=== PATIENT | male | born 1955 | race Caucasian/White ===

== ENCOUNTER 2017-04-09 06:25 | Inpatient (IN) | payer OTHER ==
[~2017-04-09 06:25] MED LIST: CEFAZOLIN 2 GM/50 ML (PMX) 50 ML IVPB; SOD CHLORIDE 0.9% 1,000 ML IV
[2017-04-09] MEDS ORDERED: CEFAZOLIN 1 GM INJ (07:00)
[2017-04-09] MEDS ORDERED: ROCURONIUM 50 MG INJ ×2 (07:00→08:01)
[2017-04-09] MEDS ORDERED: CEFAZOLIN 2 GM/50 ML (PMX) 50 ML IVPB ×2 (07:30→10:00)
[2017-04-09] MEDS ORDERED: DIPHENHYDRAMINE 50 MG INJ IV (08:00)
[2017-04-09] MEDS ORDERED: ALBUTEROL 0.083% (NEB) 2.5 MG/3 ML AMP HHN (08:00)
[2017-04-09] MEDS ORDERED: HYDROmorphONE (0.2 MG/ML) 10ML SYG IV ×2 (08:00)
[2017-04-09] MEDS ORDERED: LABETALOL HCL 20MG INJ IV (08:00)
[2017-04-09] MEDS ORDERED: OXYCODONE/ACETAMINOPHEN (5/325) TAB PO ×2 (08:00)
[2017-04-09] MEDS ORDERED: MEPERIDINE 25 MG INJ IV (08:00)
[2017-04-09] MEDS ORDERED: FENTAnyl 50 MCG/ML VIAL IV ×2 (08:00)
[2017-04-09] MEDS ORDERED: EPHEDrine SULFATE 50 MG/5 ML SYG IV (08:00)
[2017-04-09] MEDS ORDERED: METOCLOPRAMIDE 10 MG INJ IV (08:00)
[2017-04-09] MEDS ORDERED: hydrALAzine 20 MG INJ IV (08:00)
[2017-04-09] MEDS ORDERED: PROPOFOL 20 ML (08:01)
[2017-04-09] MEDS ORDERED: LIDOCAINE 2% (SDV) 5 ML INJ (08:02)
[2017-04-09] MEDS: BUPIVACAINE 0.25% (MPF) 30 ML INJ (08:25)
[2017-04-09] MEDS ORDERED: POLYMYXIN/BACITRACIN 1L IRRIG (08:33)
[2017-04-09] MEDS ORDERED: DEXAMETHASONE 4 MG/ML 1 ML INJ (09:15)
[2017-04-09] MEDS ORDERED: ONDANSETRON 4 MG INJ (09:16)
[2017-04-09] MEDS ORDERED: SUGAMMADEX SODIUM 200 MG/2 ML VIAL IV (09:26)
[2017-04-09 10:27] LABS: ADD MAN DIFF? NO
[2017-04-09 10:38] LABS: WHITE BLOOD COUNT 9.6 10^3/ul (4.8-10.8)
[2017-04-09 10:38] LABS: BASOPHILS % 0.2 % (0.0-2.0); EOSINOPHILS # 0.1 10^3/ul (0.0-0.5); EOSINOPHILS % 0.8 % (0.0-7.0); HEMATOCRIT 44.8 % (42.0-52.0); LYMPHOCYTES # 1.6 10^3/ul (0.8-2.9); LYMPHOCYTES % 16.6 % (15.0-51.0); MEAN CORPUSCULAR HEMOGLOBIN 30.8 pg (29.0-33.0); MEAN CORPUSCULAR HGB CONC 33.5 g/dl (32.0-37.0); MEAN PLATELET VOLUME 8.9 fl (7.4-10.4); MONOCYTE # 0.4 10^3/ul (0.3-0.9); MONOCYTES % 4.2 % (0.0-11.0); NEUTROPHIL # 7.5 10^3/ul (1.6-7.5); NEUTROPHILS % 77.7 % (39.0-77.0); PLATELET COUNT 326 10^3/UL (140-415); RED BLOOD COUNT 4.87 10^6/ul (4.70-6.10); RED CELL DISTRIBUTION WIDTH 12.7 % (11.5-14.5)
[2017-04-09] MEDS: ONDANSETRON 4 MG INJ IV (10:40)
[2017-04-09] MEDS: FENTAnyl 50 MCG/ML VIAL IV (10:40)
[2017-04-09 10:50] LABS: ALANINE AMINOTRANSFERASE 39 IU/L (13-69); ALBUMIN 4.2 g/dl (3.3-4.9); ALBUMIN/GLOBULIN RATIO 1.16; ALKALINE PHOSPHATASE 73 IU/L (42-121); ANION GAP 17 (8-16); ASPARTATE AMINO TRANSFERASE 29 IU/L (15-46); BILIRUBIN,INDIRECT 0.2 mg/dl (0-1.1); BILIRUBIN,TOTAL 0.2 mg/dl (0.2-1.3); CARBON DIOXIDE 21 mmol/L (21-31); CHLORIDE 110 mmol/L (97-110); GLUCOSE 121 mg/dl (70-220); TOTAL PROTEIN 7.8 g/dl (6.1-8.1)
[2017-04-09 10:57] LABS: BLOOD UREA NITROGEN 18 mg/dl (7-20); CALCIUM 8.8 mg/dl (8.4-10.2); CREATININE 0.85 mg/dl (0.61-1.24); POTASSIUM 4.5 mmol/L (3.5-5.1); SODIUM 143 mmol/L (135-144)
[2017-04-09] MEDS: KETOROLAC 30 MG INJ IV ×2 (11:20→16:21)
[2017-04-09] MEDS ORDERED: ONDANSETRON (ODT) 4 MG TAB ODT (11:30)
[2017-04-09] MEDS ORDERED: HYDROCODONE/APAP (5/325) TAB PO (11:30)
[2017-04-09] MEDS: HYDROmorphONE (0.2 MG/ML) 10ML SYG IV ×3 (11:35→11:51)
[2017-04-09] MEDS: morphine 2 MG INJ IV (13:09)
[2017-04-09] MEDS: SOD CHLORIDE 0.9% 1,000 ML IV (13:12)
[2017-04-09] MEDS ORDERED: ONDANSETRON 4 MG INJ IV (15:30)
[2017-04-09] MEDS: CEFAZOLIN 2 GM/50 ML (PMX) 50 ML IVPB (18:48)
[2017-04-10] MEDS: CEFAZOLIN 2 GM/50 ML (PMX) 50 ML IVPB ×2 (01:32→08:57)
[2017-04-10 05:13] LABS: ADD MAN DIFF? NO
[2017-04-10 05:20] LABS: BASOPHILS % 0.1 % (0.0-2.0); HEMATOCRIT 40.2 % (42.0-52.0); HEMOGLOBIN 13.6 g/dl (14.0-18.0); LYMPHOCYTES # 1.5 10^3/ul (0.8-2.9); LYMPHOCYTES % 10.8 % (15.0-51.0); MEAN CORPUSCULAR HEMOGLOBIN 30.4 pg (29.0-33.0); MEAN CORPUSCULAR HGB CONC 33.8 g/dl (32.0-37.0); MEAN CORPUSCULAR VOLUME 89.9 fl (82.0-101.0); MONOCYTE # 1.3 10^3/ul (0.3-0.9); MONOCYTES % 8.9 % (0.0-11.0); NEUTROPHIL # 11.2 10^3/ul (1.6-7.5); NEUTROPHILS % 79.6 % (39.0-77.0); PLATELET COUNT 356 10^3/UL (140-415); RED BLOOD COUNT 4.47 10^6/ul (4.70-6.10); RED CELL DISTRIBUTION WIDTH 12.4 % (11.5-14.5)
[2017-04-10 05:45] LABS: ALANINE AMINOTRANSFERASE 36 IU/L (13-69); ALBUMIN 3.7 g/dl (3.3-4.9); ALBUMIN/GLOBULIN RATIO 1.15; ALKALINE PHOSPHATASE 66 IU/L (42-121); ANION GAP 15 (8-16); ASPARTATE AMINO TRANSFERASE 23 IU/L (15-46); BILIRUBIN,INDIRECT 0.3 mg/dl (0-1.1); BILIRUBIN,TOTAL 0.3 mg/dl (0.2-1.3); BLOOD UREA NITROGEN 27 mg/dl (7-20); CALCIUM 8.9 mg/dl (8.4-10.2); CARBON DIOXIDE 23 mmol/L (21-31); CHLORIDE 108 mmol/L (97-110); CREATININE 0.89 mg/dl (0.61-1.24); GLUCOSE 105 mg/dl (70-220); POTASSIUM 4.4 mmol/L (3.5-5.1); SODIUM 142 mmol/L (135-144); TOTAL PROTEIN 6.9 g/dl (6.1-8.1)
[2017-04-10] MEDS: HYDROCODONE/APAP (5/325) TAB PO (09:41)
[2017-04-10] MEDS: SOD CHLORIDE 0.9% 500 ML IV (10:29)
[2017-04-10 11:43] LABS: ADD MAN DIFF? NO
[2017-04-10 11:45] LABS: BASOPHILS % 0.1 % (0.0-2.0); EOSINOPHILS % 0.1 % (0.0-7.0); HEMATOCRIT 38.7 % (42.0-52.0); HEMOGLOBIN 13.3 g/dl (14.0-18.0); LYMPHOCYTES # 1.6 10^3/ul (0.8-2.9); LYMPHOCYTES % 15.9 % (15.0-51.0); MEAN CORPUSCULAR HEMOGLOBIN 31.1 pg (29.0-33.0); MEAN CORPUSCULAR HGB CONC 34.4 g/dl (32.0-37.0); MEAN CORPUSCULAR VOLUME 90.6 fl (82.0-101.0); MEAN PLATELET VOLUME 8.7 fl (7.4-10.4); MONOCYTES % 9.8 % (0.0-11.0); NEUTROPHIL # 7.6 10^3/ul (1.6-7.5); NEUTROPHILS % 73.7 % (39.0-77.0); PLATELET COUNT 320 10^3/UL (140-415); RED BLOOD COUNT 4.27 10^6/ul (4.70-6.10); RED CELL DISTRIBUTION WIDTH 12.5 % (11.5-14.5)
[2017-04-10 11:45] LABS: WHITE BLOOD COUNT 10.3 10^3/ul (4.8-10.8)
[2017-04-10 12:21] LABS: ANION GAP 11 (8-16); BLOOD UREA NITROGEN 30 mg/dl (7-20); CARBON DIOXIDE 27 mmol/L (21-31); CHLORIDE 105 mmol/L (97-110); CREATININE 0.91 mg/dl (0.61-1.24); GLUCOSE 107 mg/dl (70-220); POTASSIUM 4.4 mmol/L (3.5-5.1); SODIUM 139 mmol/L (135-144)
[2017-04-10] MEDS: KETOROLAC 30 MG INJ IV (13:02)
== END 2017-04-10 13:53 | disposition home or self-care (01) | DRG 355 ==
LOC: REC 06:25 → MS1 12:15
PROC: 0WUF0JZ Supplement Abdominal Wall with Synthetic Substitute, Open Approach (ICD-10-PCS; principal; 2017-04-09 08:30)
PROC: 0KXK0ZZ Transfer Right Abdomen Muscle, Open Approach (ICD-10-PCS; 2017-04-09 08:30)
PROC: 0KXL0ZZ Transfer Left Abdomen Muscle, Open Approach (ICD-10-PCS; 2017-04-09 08:30)
PROC: 0HX7XZZ Transfer Abdomen Skin, External Approach (ICD-10-PCS; 2017-04-09 08:30)
DX: K43.9 Ventral hernia without obstruction or gangrene (principal); G89.18 Other acute postprocedural pain; K42.9 Umbilical hernia without obstruction or gangrene
CPT/HCPCS: 80048; 80053; 85025